=== PATIENT | male | born 1950 | race Caucasian/White ===

== ENCOUNTER → 2024-07-26 10:54 | Outpatient (REF) | payer MEDICARE, OTHER, SELFPAY | LOC: HWRAD 10:54 | PROVIDERS: ATTENDING PHYSICIAN Internal Medicine | DX: M79.672 Pain in left foot (principal); M25.572 Pain in left ankle and joints of left foot | CPT/HCPCS: 73610; 73630 ==

== ENCOUNTER → 2025-05-10 11:11 | Outpatient (REF) | payer MEDICARE, OTHER, SELFPAY | LOC: HWRAD 11:11 | PROVIDERS: ATTENDING PHYSICIAN Family Medicine | DX: M47.27 Other spondylosis with radiculopathy, lumbosacral region (principal); M54.42 Lumbago with sciatica, left side | CPT/HCPCS: 72110 ==

== ENCOUNTER → 2025-05-24 06:54 | Outpatient (REF) | payer MEDICARE, OTHER, SELFPAY | LOC: RAD 06:54 | PROVIDERS: ATTENDING PHYSICIAN Family Medicine | DX: R93.5 Abnormal findings on diagnostic imaging of other abdominal regions, including retroperitoneum (principal) | CPT/HCPCS: 74178; Q9967 ==